=== PATIENT | male | born 1970 | race Caucasian/White ===

== ENCOUNTER 2019-02-19 09:59 | Emergency (ER) | payer OTHER ==
[2019-02-19 11:24] LABS: Bilirubin Negative (Negative); Blood, Urine Moderate (Negative); Clarity Clear (Clear); Glucose, Urine (Dipstick) 250 mg/dL (Negative); Leukocyte Negative (Negative); Nitrite Negative (Negative); Protein, Urine (Dipstick) Negative (Neg-Trace); Urobilinogen 0.2 mg/dL (0.2-1.0)
--- NOTE | 2019-02-19 11:27 | CT ---
CT abdomen and pelvis noncontrast HISTORY: Left flank pain. Dysuria. FINDINGS: Each renal collecting system, ureter, and urinary bladder are decompressed. A tiny hyperden se focus at the posterior midportion left kidney is noted on the coronal images but favored not to represent a urinary tract calculus. Lack of contrast limits evaluation for other abnormalities. Calcified granulomata within the solid or linda are consistent with healed granulomatous disease. Hyperdense floccular material within the dependent portion of the stomach. Scattered mild diverticula arise from the colon without adjacent in flammation. IMPRESSION: No CT evidence of urinary tract obstruction or calcification. Mild diverticulosis. No evidence of diverticulitis.
[2019-02-19 11:37] LABS: Bacteria/HPF Rare-Few HPF (None Seen); Squamous Epithelial 0-3 HPF (0-3); WBC/HPF 0-3 HPF (0-3)
[2019-02-19 11:38] LABS: #Basophils 0.1 thou/uL (0.0-0.2); #Lymphocytes 0.9 thou/uL (1.20-3.40); #Monocytes 0.5 thou/uL (0.11-0.59); #Neutrophils 11.8 thou/uL (1.40-6.50); %Basophils 0.9 % (0.0-1.0); %Eosinophils 0.2 % (0.0-10.0); %Lymphocytes 6.9 % (21.0-51.0); %Neutrophils 88.1 % (42.0-75.0); Mean Corpuscular HGB CONC 32.8 g/dL (32.0-36.0); Mean Corpuscular Volume 97.5 fL (78.0-98.0); Mean Platelet Volume 5.8 fL (7.4-10.4); Platelet Count 206 thou/uL (130-400); RBC Distribution Width 12.5 % (11.5-14.5); Red Blood Cell (RBC) Count 4.38 mill/uL (4.70-6.10); White Blood Cell (WBC) Count 13.4 thou/uL (4.8-10.8)
[2019-02-19 11:55] LABS: ALT (SGPT) 31 U/L (8-55); AST (SGOT) 27 U/L (5-34); Albumin 4.2 g/dL (3.5-5.0); Alkaline Phosphatase 55 U/L (40-150); Anion Gap 10 mmol/L (10-20); BUN (Urea Nitrogen) 14 mg/dL (8.9-20.6); Bilirubin, Total 0.3 mg/dL (0.2-1.2); Calc. Creatinine Clearance 0 mL/min (70-130); Calcium 8.7 mg/dL (7.8-10.44); Carbon Dioxide 25 mmol/L (22-29); Chloride 108 mmol/L (98-107); Estimated GFR-MDRD 90; Globulin 2.9 g/dL (2.4-3.5); Glucose 140 mg/dL (70-105); Potassium 4.1 mmol/L (3.5-5.1); Protein, Total 7.1 g/dL (6.0-8.3); Sodium 139 mmol/L (136-145)
[2019-02-19] MEDS ORDERED: Morphine 4 MG/ML VIAL ONE (12:39)
[2019-02-19] MEDS ORDERED: Sodium Chloride 0.9% 1,000 ML ONE (12:39)
[2019-02-19] MEDS ORDERED: Prochlorperazine 10 MG/2 ML VIAL ONE (12:39)
== END 2019-02-19 14:00 | disposition home or self-care (01) ==
LOC: MADERS 09:59
DX: K20.0 Eosinophilic esophagitis (principal); E78.5 Hyperlipidemia, unspecified; I10 Essential (primary) hypertension; F17.210 Nicotine dependence, cigarettes, uncomplicated; Z86.73 Personal history of transient ischemic attack (TIA), and cerebral infarction without residual deficits; Z79.899 Other long term (current) drug therapy
CPT/HCPCS: 36415; 74176; 80053; 81003; 81015; 85025; 96374; 96375; J0780; J2270; J7050